=== PATIENT | male | born 1985 | race Caucasian/White ===

== ENCOUNTER 2018-03-16 13:52 | Inpatient (IN) | payer OTHER ==
[~2018-03-16] VITALS: Ht 177.8 cm; Wt 113.4 kg
[2018-03-18] MEDS ORDERED: CIPROFLOXA400 MG/200 PO (10:14)
[2018-03-18] MEDS ORDERED: CIPRO500 MG PO (10:16)
[2018-03-18] MEDS ORDERED: ULTRACET PO (10:18)
== END 2018-03-18 12:09 | disposition home or self-care (01) | DRG 343 ==
LOC: ER 13:52 → SURH 03-17 00:47
PROVIDERS: Surgery
PROC: 0DTJ0ZZ Resection of Appendix, Open Approach (ICD-10-PCS; principal; 2018-03-17 07:00)
DX: K35.89 Other acute appendicitis (principal)

== ENCOUNTER 2020-06-20 17:59 | Emergency (ER) | payer OTHER ==
[~2020-06-20] VITALS: Ht 175.3 cm; Wt 122.5 kg
[~2020-06-20 17:59] MED LIST: CIPRO500 MG PO; CIPROFLOXA400 MG/200 PO; ULTRACET PO
[2020-07-05] MEDS ORDERED: ZITHROMAX500 MG PO (07:24)
[2020-07-05] MEDS ORDERED: FOLIXAPURE5000 UNIT PO (07:24)
[2020-07-05] MEDS ORDERED: VENTOLIN HFA18 GM IH (07:24)
[2020-07-05] MEDS ORDERED: GALZIN50 MG PO (07:24)
[2020-07-05] MEDS ORDERED: DECADRON6 MG PO (07:24)
[2020-07-05] MEDS ORDERED: VITAMIN C1000 MG PO (07:24)
== END 2020-06-20 23:18 | disposition home or self-care (01) ==
LOC: ER 17:59
DX: R50.9 Fever, unspecified (principal); Z20.828 Contact with and (suspected) exposure to other viral communicable diseases

== ENCOUNTER → 2020-07-05 | Emergency (ER) | payer OTHER ==
[~2020-07-05] VITALS: Ht 177.8 cm; Wt 117.9 kg
[~2020-07-05] MED LIST changes: +DECADRON6 MG PO; +FOLIXAPURE5000 UNIT PO; +GALZIN50 MG PO; +VENTOLIN HFA18 GM IH; +VITAMIN C1000 MG PO; +ZITHROMAX500 MG PO
== END | disposition home or self-care (01) ==
LOC: ER 01:39
DX: U07.1 COVID-19 (principal); J12.89 Other viral pneumonia; R07.81 Pleurodynia

== ENCOUNTER 2020-07-23 12:26 | Emergency (ER) | payer OTHER ==
[~2020-07-23] VITALS: Ht 177.8 cm; Wt 117.9 kg
[2020-07-23] MEDS ORDERED: TUSNEL LIQUID178 ML PO (15:31)
[2020-07-23] MEDS ORDERED: MEDROLPACK PO (15:31)
[2020-07-23] MEDS ORDERED: ZITHROMAX500 MG PO (15:31)
== END 2020-07-23 15:46 | disposition home or self-care (01) ==
LOC: ER 12:26
DX: U07.1 COVID-19 (principal)

== ENCOUNTER 2021-02-04 05:45 | Day surgery (SDC) | payer OTHER ==
[~2021-02-04 05:45] MED LIST changes: +MEDROLPACK PO; +TUSNEL LIQUID178 ML PO
== END 2021-02-04 13:45 | disposition home or self-care (01) ==
LOC: CIR.AMB 05:45
PROVIDERS: ATTEND Surgery Surgery of the Hand
DX: M65.841 Other synovitis and tenosynovitis, right hand (principal); Z20.822 Contact with and (suspected) exposure to COVID-19